=== PATIENT | female | born 1960 | race Asian ===

== ENCOUNTER → 2022-03-10 07:26 | Outpatient (CLI) | payer OTHER, SELFPAY ==
[2022-03-10 10:19] LABS: Alanine Aminotransferase 16 IU/L (<35); Albumin 4.5 g/dL (3.5-5.0); Albumin Globulin Ratio 1.1 (1.0-2.8); Alkaline Phosphatase 74 U/L (38-126); Aspartate Aminotransferase 29 IU/L (14-36); BUN Creatinine Ratio 14.1 (6-22); Bilirubin Total 0.8 mg/dL (0.2-1.3); Blood Urea Nitrogen 12 mg/dL (7-17); Calcium 9.3 mg/dL (8.4-10.2); Carbon Dioxide 30 mmol/L (22-32); Chloride 101 mmol/L (98-107); Cholesterol 146 mg/dL (140-199); Estimated Glomerular Filt Rate > 60 mL/min (>60); Globulin 4.2 g/dL (1.7-4.1); Glucose 93 mg/dL (70-100); HDL Cholesterol 31 mg/dL (40-60); HEMOLYSIS < 15 (0-50); LDL Cholesterol Calculated 80 mg/dL (<100); Potassium 4.5 mmol/L (3.4-5.1); Sodium 140 mmol/L (137-145); Total Protein 8.7 g/dL (6.3-8.2); Triglycerides 177 mg/dL (35-150)
== END ==
PROVIDERS: Family Provider Internal Medicine; PCP Internal Medicine; Referring Provider Internal Medicine; Visit Provider Internal Medicine
DX: Z13.6 Encounter for screening for cardiovascular disorders (principal)
CPT/HCPCS: 36415; 80053; 80061

== ENCOUNTER 2022-12-17 09:43 | Day surgery (SDC) | payer OTHER, SELFPAY ==
[2022-12-17] VITALS (8 sets, daily range): BP systolic 99–139; BP diastolic 47–69; PULSE 60–74; RESP 16–19; TEMP 35.9–36.6; O2SAT 97–100; BMI 21.9
--- NOTE | 2022-12-17 | DI.RAD.S_ITS ---
PROCEDURE: FL BARIUM ENEMA INDICATIONS: incomplete colonoscopy COMPARISON: None. FINDINGS: KUB: Preprocedural lean facilitator film demonstrates a normal bowel gas pattern. No suspicious abdominal calcifications. Visualized solid organ contours appear normal in size. No suspicious bony lesions. Right upper quadrant surgical clips. Colon: There is adequate opacification of the entire colon. No strictures or extrinsic mass effects are identified. No colonic fistulae or perforations. Colon caliber appears normal. There is a relatively ahaustral appearance of the descending colon. IMPRESSION: 1. No extrinsic masses are identified. 2. There is a relatively ahaustral appearance of the descending colon which is nonspecific, recommend correlation with findings on colonoscopy. Dictated by: Nikolai Dunn M.D. on 12/17/2022 at 15:50 Approved by: Nikolai Dunn M.D. on 12/17/2022 at 15:54
--- NOTE | 2022-12-17 | PATH_ITS ---
[facility] Accession Number: [id number] No. of containers..01 Tissue . 01 Material submitted: . rectum - RECTAL POLYP . 01 Diagnosis: Rectum, Polyp: Hyperplastic polyp. MRV 12/23/2022 1559 Local . 01 Electronically signed: . Bharti Bean MD, Pathologist NPI- [id number] . 01 Gross description: . Received in formalin, labeled with the patient's name and rectal polyp consists of two semi-translucent biopsies averaging 0.5 cm each, which are submitted entirely in A1. ([id number]) /MRV 12/21/2022 1434 Local . 01 Pathologist provided ICD-10: K62.1 . 01 CPT . 737158 Specimen Comment: A courtesy copy of this report has been sent to [facility] Performed at: 01 [facility] [address] [place] [address], [place], [place] [id number] MD Jacob Roy MD Phone: [phone]
[2022-12-17] MEDS: LACTATED RINGERS 1,000 ML 125 ML IV (10:15)
--- NOTE | 2022-12-17 12:27 | PM.HP.1 ---
History of Present Illness History of Present Illness Date Patient Seen: 12/17/22 Time Patient Seen: 12:27 Chief complaint: SDC Narrative: 62-year-old female presents today for screening colonoscopy. She has had a colonoscopy before it when she was about 47 for symptoms that she understood to be IBS. This was done at the [facility] in [place]. She has no family history of colon cancer and she has some symptoms of irregular bowel movements and occasional bleeding that she attributes to hemorrhoid also the irregular bowel movements are attributed to IBS. Additionally she has endometriosis which she is not sure possibly has caused a bleeding from her bowels. Otherwise she has no questions or concerns and would like to proceed with her colonoscopy today [facility] Medical History (Updated 12/17/22 @ 12:30 by Cathy Lubin MD) Irritable bowel syndrome Mini stroke (~2014) Sjogren's syndrome (10/17/15) Surgical History (Updated 03/07/22 @ 22:33 by Nanda Palma) Anesthesia History of bilateral salpingo-oophorectomy (BSO) Status post hysterectomy Status post laparoscopy Family History (Updated 03/07/22 @ 22:34 by Nanda Palma) Mother Diabetes mellitus Father Mental health problem Social History household members: spouse Smoking Status: Never smoker alcohol intake: never Meds Home Medications and Allergies Allergies Allergy/AdvReac Type Severity Reaction Status Date / Time No Known Drug Allergies Allergy Verified 03/15/22 13:43 Exam Vital Signs (past 8 hours): - 12/17/22 10:05 Temperature 97.2 F L Pulse Rate 73 Respiratory Rate 16 Blood Pressure 128/69 Pulse Oximetry 100 Oxygen Delivery Method Room Air Oxygen Delivery Method Room Air Const General: cooperative, healthy appearing and comfortable Nutritional Appearance: thin HENMT Head: normal to inspection and other (Adentulous) Mouth: oral mucosae normal Eyes General: appearance normal, both eyes and all related structures Resp Effort & Inspection: normal respiratory effort and able to speak in complete sentences GI Palpation: soft and No tender Assessment & Plan Assessment and plan (1) Encounter for screening colonoscopy: Status: Acute (2) Irritable bowel syndrome: Qualifiers: Irritable bowel syndrome type: unspecified Qualified Code(s): K58.9 - Irritable bowel syndrome without diarrhea Status: Acute Assessment & Plan narrative: Presents today for screening colonoscopy I discussed the risks benefits and alternatives including but not limited to perforation of the colon and an incomplete exam she fully understands these risks and would like to proceed.
--- NOTE | 2022-12-17 13:19 | P.OP.COLON_ITS ---
Operative Date/Time/Diagnoses Date of procedure: 12/17/22 Time of procedure: 13:19 Pre-op diagnosis: Screening for colon cancer Post-op diagnosis: same Procedure & Clinicians Study performed: Anoscopy/flexible sigmoidoscopy scope was advanced to 30 cm Rectal polyp biopsy Same procedure as scheduled: No Indications: Colon cancer screening Surgeon: Cathy Lubin Procedure Notes Procedure in detail: Patient was taken to the endoscopy suite and placed in a left lateral decubitus position. A time-out was performed. With the help of anesthesiologist conscious sedation was induced and monitored throughout the case. A digital rectal exam was performed and there were no masses or strictures. The colonoscope was introduced into the anal canal. There were several scattered rectal polyps. On attempt to further advance the scope after half an hour of maneuvering I was unable to get the scope past 30 cm. I originally had started with a pediatric scope and switched to an adult scope both of these instruments were unsuccessful. There was some excoriation and minimal damage to the mucosa at the 30 cm melany and after several attempts the colonoscopy was aborted. Findings: polyp(s) Post-procedure Recommendations: Other recommendation(s) Plan for aftercare: Would consider a re-attempt at colonoscopy with [facility] or barium enema. Discussed these options with the patient She then went down for a barium enema, and there were no large masses or strictures but there is a tortuous colon that well explains the findings on the endoscopy. I think at this point I would send for a referral to gastroenterology to see if the patient or [facility] would like to make a 2nd attempt at a screening colonoscopy.
--- NOTE | 2022-12-17 14:08 | SUR.PHASEII ---
pt to X-ray for a barium enema. pt went to X-ray on a stretcher.
== END 2022-12-17 16:04 | disposition home or self-care (01) ==
PROVIDERS: Family Provider Internal Medicine; PCP Internal Medicine; Referring Provider Surgery; Visit Provider Surgery
PROC: 0DJD8ZZ Inspection of Lower Intestinal Tract, Via Natural or Artificial Opening Endoscopic (ICD-10-PCS; CPT 45378; principal; 2022-12-17 10:00)
DX: Z12.11 Encounter for screening for malignant neoplasm of colon (principal); Z53.9 Procedure and treatment not carried out, unspecified reason
CPT/HCPCS: 45378; 74270; J2704

== ENCOUNTER → 2024-08-17 09:41 | Outpatient (CLI) | payer OTHER, SELFPAY ==
[2024-08-17 10:51] LABS: Hemoglobin A1C% w Est Avg Glu 5.2 % (4.0-6.0)
[2024-08-17 11:06] LABS: Alanine Aminotransferase 15 IU/L (<35); Albumin 4.6 g/dL (3.5-5.0); Albumin Globulin Ratio 1.2 (1.0-2.8); Alkaline Phosphatase 94 U/L (38-126); Aspartate Aminotransferase 28 IU/L (14-36); BUN Creatinine Ratio 16.3 (6-22); Bilirubin Total 0.5 mg/dL (0.2-1.3); Blood Urea Nitrogen 15 mg/dL (7-17); Calcium 9.3 mg/dL (8.4-10.2); Carbon Dioxide 27 mmol/L (22-32); Chloride 104 mmol/L (98-107); Estimated Glomerular Filt Rate > 60 mL/min (>60); Globulin 3.9 g/dL (1.7-4.1); Glucose 103 mg/dL (80-110); HEMOLYSIS < 15 (0-50); Potassium 4.1 mmol/L (3.4-5.1); Sodium 141 mmol/L (137-145); Total Protein 8.5 g/dL (6.3-8.2)
== END ==
LOC: LAB 09:41
PROVIDERS: Family Provider Internal Medicine; PCP Internal Medicine; Referring Provider Internal Medicine; Visit Provider Internal Medicine
DX: M35.00 Sjogren syndrome, unspecified (principal); R73.9 Hyperglycemia, unspecified
CPT/HCPCS: 36415; 80053; 83036